=== PATIENT | male | born 1950 | race Caucasian/White ===

== ENCOUNTER 2017-04-10 13:42 | Emergency (ER) | payer OTHER, MEDICAID ==
[~2017-04-10] VITALS: Ht 175.3 cm; Wt 90.7 kg
[2017-04-10 13:51] VITALS: BP_SYST 140
[2017-04-10] MEDS ORDERED: TRAZ-123 PO (14:26)
[2017-04-10] MEDS ORDERED: CALC0.258 PO (14:26)
[2017-04-10] MEDS ORDERED: LIP40 PO (14:26)
[2017-04-10] MEDS ORDERED: LEVO100T9 PO (14:26)
[2017-04-10] MEDS ORDERED: TAMS-11 PO (14:26)
[2017-04-10] MEDS ORDERED: PHEN100C4 PO (14:26)
[2017-04-10 14:46] LABS: BASOPHILS # (AUTO) 0.1 K/uL (0.0-0.2); BASOPHILS % (AUTO) 0.9 % (0.0-2.0); EOSINOPHILS # (AUTO) 0.2 K/uL (0.0-0.4); EOSINOPHILS % (AUTO) 2.6 % (0.0-4.0); HEMATOCRIT 32.3 % (36-54); HEMOGLOBIN 10.7 g/dL (14.0-18.0); LYMPHOCYTES # (AUTO) 1.5 K/uL (1.0-5.5); LYMPHOCYTES % (AUTO) 19.7 % (20.5-51.5); MEAN CORPUSCULAR HEMOGLOBIN 31 pg (27-31); MEAN CORPUSCULAR HGB CONC 33 % (32-36); MEAN CORPUSCULAR VOLUME 95 fL (79.0-98.0); MONOCYTES # (AUTO) 0.8 K/uL (0.0-1.0); NEUTROPHILS # (AUTO) 4.8 K/uL (1.8-7.7); NEUTROPHILS % (AUTO) 65.8 % (40.0-70.0); PLATELET COUNT (AUTO) 202 K/uL (130-430); RED BLOOD CELL COUNT(AUTO) 3.41 MIL/uL (4.2-6.2); RED CELL DISTRIBUTION WIDTH 15.1 % (9.0-15.0); WHITE BLOOD COUNT (AUTO) 7.4 K/uL (4.8-10.8)
[2017-04-10 15:01] LABS: ALBUMIN 2.9 g/dL (3.4-4.8); CREATININE 0.92 mg/dL (0.55-1.30); POTASSIUM 3.4 mmol/L (3.5-5.1); TOTAL BILIRUBIN 0.3 mg/dL (0.0-1.0)
[2017-04-10 15:05] LABS: CALCIUM 7.2 mg/dL (8.4-11.0)
[2017-04-10 16:29] LABS: BILIRUBIN,URINE NEGATIVE (NEGATIVE); BLOOD, URINE 2+ (NEGATIVE); CLARITY/URINE CLOUDY (CLEAR); COLOR,URINE YELLOW (YELLOW); GLUCOSE,URINE NEGATIVE (NEGATIVE); KETONES,URINE NEGATIVE (NEGATIVE); LEUKOCYTE ESTERASE ,URINE 3+ (NEGATIVE); NITRITE, URINE POSITIVE (NEGATIVE); PH,URINE 6.5 (5.0-8.0); PROTEIN URINE TRACE (NEGATIVE); UROBILINOGEN,URINE 0.2 (0.2-1.0)
[2017-04-10] MEDS ORDERED: DIPHENHYDRAMINE INJ 50 MG/ML VIAL IVP ONE (16:30)
[2017-04-10] MEDS ORDERED: methylPREDNISolone SOD SUCC/PF 62.5 MG/ML VIAL IVP ONE (16:30)
[2017-04-10 16:39] LABS: BACTERIA,URINE FEW /HPF (None Seen); WBC,URINE >100 /HPF (0-3)
[2017-04-10 16:48] LABS: MUCUS,URINE None Seen /LPF (None Seen)
== END 2017-04-10 16:44 | disposition left against medical advice (07) ==
LOC: SED 13:42
DX: L98.8 Other specified disorders of the skin and subcutaneous tissue (principal); N39.0 Urinary tract infection, site not specified; R21 Rash and other nonspecific skin eruption; D64.9 Anemia, unspecified; R03.0 Elevated blood-pressure reading, without diagnosis of hypertension; N40.0 Benign prostatic hyperplasia without lower urinary tract symptoms; F17.200 Nicotine dependence, unspecified, uncomplicated; Z90.49 Acquired absence of other specified parts of digestive tract; Z71.6 Tobacco abuse counseling
CPT/HCPCS: 36415; 71010; 80053; 81000-TC; 83605; 85025; 87040-TC; 87086; 87186-TC; 93005; 99285